=== PATIENT | female | born 1950 | race Caucasian/White ===

== ENCOUNTER 2017-06-10 20:49 | Inpatient (IN) | payer OTHER ==
[~2017-06-10] VITALS: Ht 154.9 cm; Wt 80.5 kg
[2017-06-10 20:50] VITALS: Ht 154.9 cm; Wt 80.5 kg
[2017-06-10 21:45] LABS: BASOPHIL % 0.7 % (0-2); PLATELET COUNT 198 x10^3mcL (130-400)
[2017-06-10 21:50] LABS: CALCIUM 8.8 mg/dL (8.5-10.1); CARBON DIOXIDE 24.7 mmol/L (21-32); CHLORIDE SERUM 105 mmol/L (98-107); CREATININE SERUM 1.3 mg/dL (0.6-1.0); GFR1 44 mL/min; GLUCOSE SERUM 137 mg/dL (74-106); POTASSIUM SERUM 4.1 mmol/L (3.5-5.1); SODIUM SERUM 139 mmol/L (136-145)
[2017-06-10 21:51] LABS: microscopic required? YES; urine erythrocyte NEGATIVE (NEGATIVE)
[2017-06-10 21:52] LABS: RED CELL DISTRIBUTION WIDTH 15.4 % (11.5-14.5)
[2017-06-10 22:29] LABS: AMPHETAMINE QUAL UR NONE DETECTED (NEG <=1000)
[2017-06-10 22:49] LABS: ALBUMIN 3.8 g/dL (3.4-5.0); ALKALINE PHOSPHATASE 73 U/L (46-116); ALT/SGPT 23 U/L (14-59); AST/SGOT 20 U/L (15-37); BILIRUBIN TOTAL 0.8 mg/dL (0.20-1.00); FREE T4 1.45 ng/dL (0.76-1.46); LIPASE 133 IU/L (73-393); TOTAL PROTEIN, SERUM 7.1 g/dL (6.4-8.2)
[2017-06-11 00:46] VITALS: BP 131/81
[2017-06-11 02:32] LABS: CHOLESTEROL/HDL RATIO 3.9; MAGNESIUM 1.8 mg/dL (1.8-2.4); PHOSPHOROUS 4.4 mg/dL (2.5-4.9)
[2017-06-11] MEDS ORDERED: GOOD SENSE OMEP20 MG PO (04:18)
[2017-06-11] MEDS ORDERED: COZAAR100 MG PO (04:19)
[2017-06-11] MEDS ORDERED: LEVOTHYROXIN0.025 M2 PO (04:20)
[2017-06-11] MEDS ORDERED: HYDROCHLOROTH12.5 M2 PO (04:20)
[2017-06-11 05:19] VITALS: BP 147/83
[2017-06-11 08:34] VITALS: BP 143/93
[2017-06-11 09:40] VITALS: BP 143/93
[2017-06-11 10:15] LABS: BASOPHIL % 0.4 % (0-2); PLATELET COUNT 181 x10^3mcL (130-400)
[2017-06-11 10:16] LABS: CALCIUM 8.8 mg/dL (8.5-10.1); CARBON DIOXIDE 20.2 mmol/L (21-32); MAGNESIUM 1.9 mg/dL (1.8-2.4)
[2017-06-11 10:18] LABS: RED CELL DISTRIBUTION WIDTH 15.3 % (11.5-14.5)
[2017-06-11 12:25] VITALS: BP 121/78
[2017-06-11] MEDS ORDERED: METOPROLOL TART25 M1 PO (14:10)
[2017-06-11] MEDS ORDERED: NIC14 TD (14:10)
[2017-06-11] MEDS ORDERED: NEU100 PO (14:10)
[2017-06-11] MEDS ORDERED: COL100 PO (14:10)
[2017-06-11] MEDS ORDERED: LAC PO (14:11)
[2017-06-11] MEDS ORDERED: ZOFI IV (14:11)
[2017-06-11] MEDS ORDERED: SOL40I IV (14:12)
[2017-06-11] MEDS ORDERED: METHYLPREDNISOLONE IV (14:12)
[2017-06-11] MEDS ORDERED: [UNRECOGNIZED DRUG - OTHER] IV (14:12)
[2017-06-11] MEDS ORDERED: ROC1I IV (14:13)
[2017-06-11 15:02] VITALS: BP 121/78
== END 2017-06-11 17:22 | disposition short-term general hospital (02) | DRG 871 ==
LOC: ED 20:49 → DU 23:46 → MU 06-11 14:47
PROVIDERS: Emergency Medicine; Family Medicine
DX: A41.9 Sepsis, unspecified organism (principal); N17.0 Acute kidney failure with tubular necrosis; J44.1 Chronic obstructive pulmonary disease with (acute) exacerbation; F33.9 Major depressive disorder, recurrent, unspecified; N39.0 Urinary tract infection, site not specified; G56.02 Carpal tunnel syndrome, left upper limb; I10 Essential (primary) hypertension; M06.9 Rheumatoid arthritis, unspecified; F17.210 Nicotine dependence, cigarettes, uncomplicated; M79.7 Fibromyalgia; E03.9 Hypothyroidism, unspecified; T38.0X5A Adverse effect of glucocorticoids and synthetic analogues, initial encounter; Z96.653 Presence of artificial knee joint, bilateral; E66.9 Obesity, unspecified; J84.10 Pulmonary fibrosis, unspecified; Z87.440 Personal history of urinary (tract) infections; Z90.49 Acquired absence of other specified parts of digestive tract; Z90.89 Acquired absence of other organs; Y92.89 Other specified places as the place of occurrence of the external cause; Z68.34 Body mass index [BMI] 34.0-34.9, adult
CPT/HCPCS: 83880; 84439; G0480; J0696; J2270; J2930; J7030; J7512; J7620; Q0092